=== PATIENT | female | born 1925 | race Caucasian/White ===

== ENCOUNTER 2017-06-06 14:38 | Inpatient (IN) | payer MEDICARE ==
[~2017-06-06] VITALS: Ht 152.4 cm; Wt 49.3 kg
[2017-06-06 15:14] LABS: INR 0.98 (0.85-1.15); PARTIAL THROMBOPLASTIN TIME 22.8 SEC (26.3-35.5); PROTHROMBIN TIME 10.3 SEC (9.6-11.6)
[2017-06-06] MEDS ORDERED: SODIUM CHLORIDE 0.9% 500ML 500 ML IV ONE (15:17)
[2017-06-06 15:18] LABS: BASOPHILS % (AUTO) 0.8 % (0.0-5.0); EOSINOPHILS % (AUTO) 0.6 % (0.0-8.0); HEMATOCRIT 39.7 % (36-48); LYMPHOCYTES % (AUTO) 39.7 % (21.0-51.0); MEAN CORPUSCULAR HEMOGLOBIN 29.5 pg (27.0-33.0); MEAN CORPUSCULAR HGB CONC 33.9 g/dL (32.0-36.0); NEUTROPHILS % (AUTO) 53.9 % (40.0-77.0); NUCLEATED RED BLOOD CELLS 0.2 % (0.0-0.19); PLATELET COUNT (AUTO) 188 K/uL (130-400); RED BLOOD CELL COUNT(AUTO) 4.57 MIL/uL (4.00-5.50); WHITE BLOOD COUNT (AUTO) 8.6 K/uL (4.8-10.8)
[2017-06-06 15:26] LABS: ALBUMIN 2.8 g/dL (3.5-5.0); CREATINE KINASE MB 0.9 ng/mL (0.5-3.6); CREATININE 1.5 mg/dL (0.5-1.5); TOTAL PROTEIN, SERUM 6.1 g/dL (6.0-8.3)
[2017-06-06 15:29] LABS: POTASSIUM 2.7 mmol/L (3.5-5.1)
[2017-06-06] MEDS ORDERED: POTASSIUM BICARB/CIT AC 25 MEQ TABLET.EFF ONE (16:15)
[2017-06-06] MEDS ORDERED: INSULIN HUMULIN R 100 UNIT/ML 3ML ONE (16:16)
[2017-06-06 16:23] LABS: ABG BASE EXCESS -8.7 mmol/L (-2.0-3.0); ABG HCO3 15.1 mmol/L (21.0-28.0); ABG OXYGEN SATURATION 98.9 % (95.0-99.0); ABG PCO2 28 mmHg (32-45)
[2017-06-06] MEDS ORDERED: ONDANSETRON HCL 4 MG/2 ML VIAL ONE (16:23)
[2017-06-06] MEDS ORDERED: ACETAMINOPHEN 325 MG TAB ONE (16:34)
[2017-06-06 17:13] LABS: APPEARANCE,URINE CLEAR (CLEAR); BILIRUBIN,URINE NEGATIVE (NEGATIVE); COLOR,URINE YELLOW (YELLOW); GLUCOSE, URINE (UA) >=1000 mg/dL (NEGATIVE); KETONES,URINE 40 mg/dL (NEGATIVE); LEUKOCYTE ESTERASE ,URINE NEGATIVE (NEGATIVE); NITRATE,URINE POSITIVE (NEGATIVE); OCCULT BLOOD,URINE TRACE-LYSED (NEGATIVE); PH,URINE 5.5 (5.0-8.0); PROTEIN,URINE TRACE (NEGATIVE); UROBILINOGEN,URINE 0.2 mg/dL (0.2-1.0)
[2017-06-06 17:37] LABS: BACTERIA,URINE Moderate /HPF (None Seen)
[2017-06-06 17:39] LABS: HYALINE CASTS, URINE 0-1 /LPF (0-1 /LPF); MUCUS,URINE Rare LPF (None Seen); RBC,URINE 0-1 /HPF (0-1); SQUAMOUS EPITHELIAL CELL,UR Few /LPF (0-2)
[2017-06-06] MEDS ORDERED: CEFTRIAXONE SODIUM 1 GM ONE (18:25)
[2017-06-06] MEDS ORDERED: SODIUM CHLORIDE 0.9% 50 ML IV ONE (18:26)
[2017-06-06] MEDS ORDERED: POTASSIUM CHLORIDE 10% ELIXIR 20 MEQ/15 ML UDCUP PO PRN (18:30)
[2017-06-06] MEDS ORDERED: POTASSIUM CHLORIDE 20 MEQ ERTAB PO PRN (18:30)
[2017-06-06] MEDS ORDERED: DEXTROSE 50%-WATER 50 ML DISP.SYRIN IV PRN (18:30)
[2017-06-06] MEDS ORDERED: MAG HYDROX/AL HYDROX/SIMETH ES 30 ML SUSP UDCUP PO PRN (18:30)
[2017-06-06] MEDS ORDERED: GLUCAGON 1MG KIT 1 MG ML IM PRN (18:30)
[2017-06-06] MEDS ORDERED: LACTULOSE 20 GM/30 ML UDCUP PO PRN (18:30)
[2017-06-06] MEDS ORDERED: ACETAMINOPHEN 325 MG TAB PO PRN (18:30)
[2017-06-06] MEDS ORDERED: ONDANSETRON HCL 4 MG/2 ML VIAL IV PRN (18:30)
[2017-06-06] MEDS ORDERED: NITROGLYCERIN 0.4 MG SL TAB SL SCH (18:45)
[2017-06-06] MEDS ORDERED: NITR0.4T SL (18:50)
[2017-06-06] MEDS ORDERED: DULA1.5P SQ (18:50)
[2017-06-06] MEDS ORDERED: ASPI-555 PO (18:50)
[2017-06-06] MEDS ORDERED: GLIP10TA9 PO (18:50)
[2017-06-06] MEDS ORDERED: VALS160T28 PO (18:50)
[2017-06-06] MEDS ORDERED: LEVO125T11 PO (18:50)
[2017-06-06] MEDS ORDERED: PIOG30TA26 PO (18:50)
[2017-06-06] MEDS ORDERED: ATOR20TA65 PO (18:50)
[2017-06-06] MEDS ORDERED: METO-391 PO (18:50)
[2017-06-06] MEDS ORDERED: DONE5TAB33 PO (18:50)
[2017-06-06] MEDS ORDERED: INSULIN DETEMIR 10ML 100 UNIT/ML 10ML SQ ONE (20:15)
[2017-06-06] MEDS ORDERED: METOPROLOL TARTRATE 25 MG TAB PO SCH (21:00)
[2017-06-06] MEDS: POTASSIUM CHLORIDE 20 MEQ ERTAB PO SCH (21:00)
[2017-06-06] MEDS ORDERED: SODIUM CHLORIDE 0.9% 1000ML 1,000 ML IV ONE (23:28)
[2017-06-07] VITALS (7 sets, daily range): BP systolic 103–149; BP diastolic 40–70
[2017-06-07] MEDS: LIDOCAINE HCL-MPF 1% 2ML VIAL IVP PRN ×2 (00:57→22:26)
[2017-06-07] MEDS: SODIUM CHLORIDE 0.9% 1000ML 1,000 ML IV SCH ×2 (00:58→10:42)
[2017-06-07] MEDS: POTASSIUM CHLORIDE 20MEQ/100ML 100 ML IV PRN ×2 (00:58→22:26)
[2017-06-07] MEDS: ACETAMINOPHEN 325 MG TAB PO PRN ×2 (01:06→06:16)
[2017-06-07] MEDS: INSULIN HUMULIN R 100 UNIT/ML 3ML SQ SCH ×5 (01:26→22:21)
[2017-06-07 03:36] LABS: HEMATOCRIT 36.4 % (36-48); MEAN CORPUSCULAR HEMOGLOBIN 29.7 pg (27.0-33.0); MEAN CORPUSCULAR HGB CONC 34.6 g/dL (32.0-36.0); MEAN CORPUSCULAR VOLUME 85.7 fL (79-99); PLATELET COUNT (AUTO) 171 K/uL (130-400); RED BLOOD CELL COUNT(AUTO) 4.24 MIL/uL (4.00-5.50); RED CELL DISTRIBUTION WIDTH 15.4 % (11.0-15.5); WHITE BLOOD COUNT (AUTO) 8.8 K/uL (4.8-10.8)
[2017-06-07 03:49] LABS: CREATININE 1.4 mg/dL (0.5-1.5); MAGNESIUM 1.8 mg/dL (1.80-2.40); POTASSIUM 3.1 mmol/L (3.5-5.1)
[2017-06-07 03:50] LABS: HEMOGLOBIN A1C 13.1 % (4.0-6.0)
[2017-06-07] MEDS: LEVOTHYROXINE 125 MCG TABLET PO SCH (06:15)
[2017-06-07] MEDS ORDERED: INSULIN DETEMIR 10ML 100 UNIT/ML 10ML SQ SCH (07:30)
[2017-06-07] MEDS ORDERED: Valsartan 160 MG PO SCH (08:00)
[2017-06-07] MEDS ORDERED: DONEPEZIL HCL 5 MG TAB PO SCH (09:00)
[2017-06-07] MEDS ORDERED: ATORVASTATIN CALCIUM 20 MG TABLET PO SCH (09:00)
[2017-06-07] MEDS ORDERED: CEFTRIAXONE 1GM/D5W 50ML 50 ML IV SCH (09:30)
[2017-06-07] MEDS ORDERED: CEFTRIAXONE SODIUM 1 GM IVP SCH (10:15)
[2017-06-07] MEDS: POTASSIUM CHLORIDE 20 MEQ ERTAB PO SCH ×3 (10:46→21:00)
[2017-06-07] MEDS: ENOXAPARIN SODIUM 30 MG/0.3 ML SQ SCH (10:46)
[2017-06-07] MEDS: ASPIRIN 81 MG EC TAB PO SCH (10:46)
[2017-06-07] MEDS: PANTOPRAZOLE SODIUM 40 MG TABLET.DR PO SCH (10:46)
[2017-06-08] MEDS: TRAMADOL /APAP 37.5MG/325MG TAB PO PRN ×2 (01:17→22:58)
[2017-06-08 04:15] VITALS: BP 112/51
[2017-06-08 04:21] LABS: HEMATOCRIT 35.9 % (36-48); MEAN CORPUSCULAR HGB CONC 34.8 g/dL (32.0-36.0); MEAN CORPUSCULAR VOLUME 86.1 fL (79-99); NUCLEATED RED BLOOD CELLS 0.2 % (0.0-0.19); PLATELET COUNT (AUTO) 125 K/uL (130-400); RED BLOOD CELL COUNT(AUTO) 4.17 MIL/uL (4.00-5.50); RED CELL DISTRIBUTION WIDTH 15.8 % (11.0-15.5); WHITE BLOOD COUNT (AUTO) 7.3 K/uL (4.8-10.8)
[2017-06-08 04:40] LABS: POTASSIUM 3.6 mmol/L (3.5-5.1)
[2017-06-08] MEDS: INSULIN HUMULIN R 100 UNIT/ML 3ML SQ SCH (06:52)
[2017-06-08] MEDS: LEVOTHYROXINE 125 MCG TABLET PO SCH (06:54)
[2017-06-08] MEDS: SODIUM CHLORIDE 0.9% 1000ML 1,000 ML IV SCH ×2 (06:55→13:15)
[2017-06-08] MEDS: POTASSIUM CHLORIDE 20 MEQ ERTAB PO SCH ×3 (09:00→21:00)
[2017-06-08] MEDS ORDERED: LOSA25TA21 PO (09:20)
[2017-06-08] MEDS ORDERED: CEPH500C2 PO (09:20)
[2017-06-08] MEDS ORDERED: SIMV5TAB6 PO (09:20)
[2017-06-08] MEDS: PANTOPRAZOLE SODIUM 40 MG TABLET.DR PO SCH (11:15)
[2017-06-08] MEDS: ASPIRIN 81 MG EC TAB PO SCH (11:15)
[2017-06-08] MEDS: ENOXAPARIN SODIUM 30 MG/0.3 ML SQ SCH (11:16)
[2017-06-08] MEDS ORDERED: INSULIN DETEMIR 10ML 100 UNIT/ML 10ML SQ SCH (13:00)
[2017-06-08] MEDS: CEPHALEXIN 500 MG CAPSULE PO SCH ×2 (13:14→21:20)
[2017-06-08 16:00] VITALS: BP 122/63
[2017-06-08 19:20] VITALS: BP 145/70
[2017-06-08] MEDS ORDERED: LOSARTAN 50 MG TABLET PO SCH (21:00)
[2017-06-08 23:05] VITALS: BP 118/57
[2017-06-09 03:05] VITALS: BP 124/81
[2017-06-09] MEDS: LEVOTHYROXINE 125 MCG TABLET PO SCH (07:53)
[2017-06-09 08:00] VITALS: BP 123/61
[2017-06-09] MEDS ORDERED: INSU100I21 SQ (08:09)
[2017-06-09] MEDS ORDERED: [UNRECOGNIZED DRUG - OTHER] INJ (08:15)
[2017-06-09] MEDS: ASPIRIN 81 MG EC TAB PO SCH (08:27)
[2017-06-09] MEDS: CEPHALEXIN 500 MG CAPSULE PO SCH ×2 (08:27→17:32)
[2017-06-09] MEDS: PANTOPRAZOLE SODIUM 40 MG TABLET.DR PO SCH (08:27)
[2017-06-09] MEDS: ENOXAPARIN SODIUM 30 MG/0.3 ML SQ SCH (08:29)
[2017-06-09] MEDS: POTASSIUM CHLORIDE 20 MEQ ERTAB PO SCH ×2 (08:42→14:00)
[2017-06-09 11:00] VITALS: BP 118/60
[2017-06-09] MEDS: TRAMADOL /APAP 37.5MG/325MG TAB PO PRN (11:08)
[2017-06-09] MEDS ORDERED: INSULIN GLARGINE 100 UNITS/ML 10 ML VIAL SQ SCH (13:00)
[2017-06-09 15:58] VITALS: BP 139/67
[2017-06-13] MEDS ORDERED: Dulaglutide (Trulicity) 1.5 MG SQ SCH (09:00)
== END 2017-06-09 17:44 | disposition home health service (06) | DRG 638 ==
LOC: EDH 14:38 → OBSVTOIN 16:52 → EDHIP 16:52 → 3BH 23:58
PROVIDERS: ADMIT Internal Medicine; ATTEND Internal Medicine
DX: E11.65 Type 2 diabetes mellitus with hyperglycemia (principal); F03.91 Unspecified dementia, unspecified severity, with behavioral disturbance; E11.21 Type 2 diabetes mellitus with diabetic nephropathy; E11.42 Type 2 diabetes mellitus with diabetic polyneuropathy; F32.1 Major depressive disorder, single episode, moderate; N39.0 Urinary tract infection, site not specified; B96.20 Unspecified Escherichia coli [E. coli] as the cause of diseases classified elsewhere; Z66 Do not resuscitate; M48.061 Spinal stenosis, lumbar region without neurogenic claudication; I25.10 Atherosclerotic heart disease of native coronary artery without angina pectoris; G89.29 Other chronic pain; M54.5 Low back pain; I13.10 Hypertensive heart and chronic kidney disease without heart failure, with stage 1 through stage 4 chronic kidney disease, or unspecified chronic kidney disease; N18.9 Chronic kidney disease, unspecified; E87.6 Hypokalemia; E86.0 Dehydration; E11.22 Type 2 diabetes mellitus with diabetic chronic kidney disease; E03.9 Hypothyroidism, unspecified; E78.2 Mixed hyperlipidemia; K21.9 Gastro-esophageal reflux disease without esophagitis; M10.9 Gout, unspecified; Z82.49 Family history of ischemic heart disease and other diseases of the circulatory system; Z95.5 Presence of coronary angioplasty implant and graft; Z83.3 Family history of diabetes mellitus; Z83.49 Family history of other endocrine, nutritional and metabolic diseases; Z74.01 Bed confinement status
CPT/HCPCS: 36415; 36600; 71045; 80048; 80053; 80061; 81001; 82009; 82550; 82553; 82803; 82948; 83036; 83735; 84484; 85025; 85027; 85610; 85730; 87040; 87088; 87186; 93005; A4218; J0696; J1650; J1815; J2405; J3480; J3490; J7030; J7040

== ENCOUNTER 2017-06-10 22:22 | Inpatient (IN) | payer MEDICARE ==
[~2017-06-10] VITALS: Ht 152.4 cm; Wt 53.5 kg
[~2017-06-10 22:22] MED LIST: ASPI-555 PO; CEPH500C2 PO; INSU100I21 SQ; LEVO125T11 PO; LOSA25TA21 PO; NITR0.4T SL; SIMV5TAB6 PO; [UNRECOGNIZED DRUG - OTHER] INJ
[2017-06-10 22:53] LABS: BASOPHILS % (AUTO) 0.3 % (0.0-5.0); CORRECTED WHITE BLOOD COUNT 5.6 K/uL (4.5-11.0); EOSINOPHILS % (AUTO) 0.1 % (0.0-8.0); HEMATOCRIT 34.9 % (36-48); LYMPHOCYTES % (AUTO) 24.8 % (21.0-51.0); MEAN CORPUSCULAR HEMOGLOBIN 30.2 pg (27.0-33.0); MEAN CORPUSCULAR VOLUME 86.3 fL (79-99); MONOCYTES % (AUTO) 7.6 % (3.0-13.0); NEUTROPHILS % (AUTO) 67.2 % (40.0-77.0); NUCLEATED RED BLOOD CELLS 29.5 % (0.0-0.19); PLATELET COUNT (AUTO) 140 K/uL (130-400); RED BLOOD CELL COUNT(AUTO) 4.05 MIL/uL (4.00-5.50); RED CELL DISTRIBUTION WIDTH 15.6 % (11.0-15.5); WHITE BLOOD COUNT (AUTO) 7.3 K/uL (4.8-10.8)
[2017-06-10 23:05] LABS: ALBUMIN 2.1 g/dL (3.5-5.0); BILIRUBIN,TOTAL 3.2 mg/dL (0.2-1.0); TOTAL PROTEIN, SERUM 4.8 g/dL (6.0-8.3)
[2017-06-10] MEDS ORDERED: SODIUM CHLORIDE 0.9% 500ML 500 ML IV ONE (23:10)
[2017-06-10 23:12] LABS: POTASSIUM 2.5 mmol/L (3.5-5.1)
[2017-06-10] MEDS ORDERED: POTASSIUM BICARB/CIT AC 25 MEQ TABLET.EFF ONE (23:32)
[2017-06-10 23:54] LABS: LYMPHOCYTES % (MANUAL) 15 % (22-44); MONOCYTES % (MANUAL) 1 % (2-9); SEGMENTED NEUTROPHILS % 84 % (40-70)
[2017-06-10 23:55] LABS: MAN.DIFF COMMENT-IMPRESSION MANUAL DIFFERENTIAL; PLATELET MORPHOLOGY COMMENT SLIGHTLY DECREASED
[2017-06-11] MEDS ORDERED: POTASSIUM BICARB/CIT AC 25 MEQ TABLET.EFF ONE (00:16)
[2017-06-11] MEDS ORDERED: LEVOFLOXACIN 500 MG/D5W 100 ML 100 ML ONE (02:00)
[2017-06-11] MEDS ORDERED: DEXTROSE 5 %-0.45 % NACL 1,000 ML IV ONE (04:07)
[2017-06-11] MEDS ORDERED: MEROPENEM 1 GM VIAL ONE (04:07)
[2017-06-11] MEDS ORDERED: POTASSIUM CHLORIDE 10% ELIXIR 20 MEQ/15 ML UDCUP PO PRN (05:15)
[2017-06-11] MEDS ORDERED: POTASSIUM CHLORIDE 20 MEQ ERTAB PO PRN (05:15)
[2017-06-11] MEDS ORDERED: ONDANSETRON HCL 4 MG/2 ML VIAL IVP PRN (05:15)
[2017-06-11] MEDS ORDERED: POTASSIUM CHLORIDE 20MEQ/100ML 100 ML IV PRN (05:15)
[2017-06-11] MEDS ORDERED: LIDOCAINE HCL-MPF 1% 2ML VIAL IJ PRN (05:15)
[2017-06-11] MEDS ORDERED: ZOSYN 3.375GM+NS 50ML 50 ML IV SCH (06:30)
[2017-06-11] MEDS ORDERED: INSU100I21 SQ (07:10)
[2017-06-11] MEDS ORDERED: GLUCAGON 1MG KIT 1 MG ML IM PRN (07:15)
[2017-06-11] MEDS ORDERED: DEXTROSE 50%-WATER 50 ML DISP.SYRIN IV PRN (07:15)
[2017-06-11 07:30] VITALS: BP 128/61
[2017-06-11] MEDS ORDERED: KETOROLAC TROMETHAMINE 15MG/ML IV PRN (07:30)
[2017-06-11] MEDS: DEXTROSE 5 %-0.45 % NACL 1,000 ML IV SCH ×3 (08:25→22:06)
[2017-06-11] MEDS: CEFEPIME HCL 1 GM VIAL IVP SCH ×2 (08:38→21:13)
[2017-06-11] MEDS ORDERED: ENOXAPARIN SODIUM 30 MG/0.3 ML SQ SCH (09:00)
[2017-06-11] MEDS ORDERED: FAMOTIDINE/PF 20 MG/2 ML VIAL IV SCH (09:00)
[2017-06-11 09:40] LABS: ALBUMIN 1.9 g/dL (3.5-5.0); BILIRUBIN,DIRECT 2.5 mg/dL (0.0-0.3); BILIRUBIN,TOTAL 3.1 mg/dL (0.2-1.0); POTASSIUM 3.4 mmol/L (3.5-5.1); TOTAL PROTEIN, SERUM 4.5 g/dL (6.0-8.3)
[2017-06-11] MEDS ORDERED: GADOBENATE DIMEGLUMINE 20 ML IV ONE (10:57)
[2017-06-11 12:00] VITALS: BP 120/50
[2017-06-11 16:00] VITALS: BP 115/59
[2017-06-11 20:00] VITALS: BP 117/54
[2017-06-11] MEDS ORDERED: DIPHENHYDRAMINE HCL 25 MG CAPSULE PO PRN (20:00)
[2017-06-11] MEDS ORDERED: DiphenhydrAMINE HCL 50 MG/ML VIAL ONE (21:43)
[2017-06-11] MEDS ORDERED: DiphenhydrAMINE HCL 50 MG/ML VIAL IV PRN (22:00)
[2017-06-12] VITALS: BP 125/53
[2017-06-12 04:00] VITALS: BP 116/61
[2017-06-12 05:30] LABS: HEMATOCRIT 36.4 % (36-48); MEAN CORPUSCULAR HGB CONC 34.6 g/dL (32.0-36.0); MEAN CORPUSCULAR VOLUME 86.8 fL (79-99); PLATELET COUNT (AUTO) 152 K/uL (130-400); RED BLOOD CELL COUNT(AUTO) 4.19 MIL/uL (4.00-5.50); RED CELL DISTRIBUTION WIDTH 16.4 % (11.0-15.5); WHITE BLOOD COUNT (AUTO) 6.3 K/uL (4.8-10.8)
[2017-06-12 05:48] LABS: BILIRUBIN,DIRECT 3.1 mg/dL (0.0-0.3); CREATININE 1.1 mg/dL (0.5-1.5); POTASSIUM 3.6 mmol/L (3.5-5.1)
[2017-06-12] MEDS ORDERED: MELOXICAM 7.5 MG TABLET PO PRN (06:45)
[2017-06-12 08:00] VITALS: BP 115/52
[2017-06-12] MEDS ORDERED: FAMOTIDINE 20MG TAB 20 MG TAB PO SCH (09:00)
[2017-06-12 11:51] VITALS: BP 124/55
== END 2017-06-12 14:45 | disposition hospice, home (50) | DRG 637 ==
LOC: EDH 22:22 → EDHIP 06-11 02:15 → 4DH 06-11 08:51
PROVIDERS: ADMIT Internal Medicine; ATTEND Internal Medicine
DX: E11.649 Type 2 diabetes mellitus with hypoglycemia without coma (principal); K83.1 Obstruction of bile duct; E46 Unspecified protein-calorie malnutrition; K81.0 Acute cholecystitis; N39.0 Urinary tract infection, site not specified; F32.1 Major depressive disorder, single episode, moderate; G95.9 Disease of spinal cord, unspecified; F03.91 Unspecified dementia, unspecified severity, with behavioral disturbance; K86.9 Disease of pancreas, unspecified; E11.21 Type 2 diabetes mellitus with diabetic nephropathy; E11.42 Type 2 diabetes mellitus with diabetic polyneuropathy; I13.10 Hypertensive heart and chronic kidney disease without heart failure, with stage 1 through stage 4 chronic kidney disease, or unspecified chronic kidney disease; E03.9 Hypothyroidism, unspecified; E11.22 Type 2 diabetes mellitus with diabetic chronic kidney disease; Z66 Do not resuscitate; E78.5 Hyperlipidemia, unspecified; E87.6 Hypokalemia; I25.10 Atherosclerotic heart disease of native coronary artery without angina pectoris; K21.9 Gastro-esophageal reflux disease without esophagitis; K82.8 Other specified diseases of gallbladder; M10.9 Gout, unspecified; M48.061 Spinal stenosis, lumbar region without neurogenic claudication; E11.65 Type 2 diabetes mellitus with hyperglycemia; B96.20 Unspecified Escherichia coli [E. coli] as the cause of diseases classified elsewhere; N18.9 Chronic kidney disease, unspecified; R62.7 Adult failure to thrive; Z51.5 Encounter for palliative care; Z95.5 Presence of coronary angioplasty implant and graft; Z83.3 Family history of diabetes mellitus; Z82.49 Family history of ischemic heart disease and other diseases of the circulatory system; Z68.23 Body mass index [BMI] 23.0-23.9, adult; Z88.8 Allergy status to other drugs, medicaments and biological substances; Z74.01 Bed confinement status; T38.3X5A Adverse effect of insulin and oral hypoglycemic [antidiabetic] drugs, initial encounter
CPT/HCPCS: 36415; 74183; 76705; 80048; 80053; 80076; 82947; 82948; 83690; 84132; 85007; 85025; 85027; A4218; A9577; J0692; J1200; J1885; J1956; J2185; J3490; J7040; J7042; J7070